=== PATIENT | male | born 2000 | race Caucasian/White ===

== ENCOUNTER 2022-04-12 06:05 | Emergency (ER) | payer BC, SELFPAY ==
[2022-04-12 06:54] LABS: Acetaminophen Less than 10.0 mcg/mL (10.0-30.0); Alcohol 233 mg/dL (Less than 10); CK (CPK) 688 U/L (30-200); Salicylate Less than 8.0 mg/dL (15.0-30.0)
[2022-04-12 06:55] LABS: ALT (SGPT) 58 U/L (8-55); AST (SGOT) 77 U/L (5-34); Albumin 4.7 g/dL (3.5-5.0); Alkaline Phosphatase 72 U/L (40-110); Anion Gap 16 mmol/L (10-20); BUN (Urea Nitrogen) 9 mg/dL (8.9-20.6); Bilirubin, Total 0.7 mg/dL (0.2-1.2); Calc. Creatinine Clearance 0 mL/min (70-130); Calcium 8.9 mg/dL (7.8-10.44); Carbon Dioxide 23 mmol/L (22-29); Chloride 104 mmol/L (98-107); Estimated GFR 77; Globulin 3.1 g/dL (2.4-3.5); Glucose 105 mg/dL (70-105); Potassium 3.9 mmol/L (3.5-5.1); Protein, Total 7.8 g/dL (6.0-8.3); Sodium 139 mmol/L (136-145)
[2022-04-12 07:02] LABS: Band 3 % (5-11); Hemoglobin 17.5 g/dL (14.0-18.0); Lymphocytes 4 % (21-51); MDiff Complete? YES; Mean Corpuscular HGB CONC 34.1 g/dL (32.0-36.0); Mean Corpuscular Hemoglobin 32.8 pg (27.0-31.0); Mean Platelet Volume 8.5 fL (7.4-10.4); Monocytes 4 % (0-10); Myelocyte 1 % (0-0); Neutrophil 88 % (42-75); Platelet Count 253 thou/uL (130-400); Platelet Morphology Comment Appears Adequate; RBC Distribution Width 11.6 % (11.5-14.5); RBC Morphology Normal; Red Blood Cell (RBC) Count 5.34 mill/uL (4.70-6.10); White Blood Cell (WBC) Count 25.6 thou/uL (4.8-10.8)
[2022-04-12] MEDS ORDERED: Acetaminophen 500 MG TAB ONE (09:32)
[2022-04-12] MEDS ORDERED: Ibuprofen 200 MG TAB ONE (09:32)
[2022-04-12] MEDS ORDERED: Iopamidol-370 76% 500 ML 1 ML ONE (14:24)
== END 2022-04-12 09:40 | disposition home or self-care (01) ==
LOC: ERS 06:05
DX: S32.592A Other specified fracture of left pubis, initial encounter for closed fracture (principal); F10.129 Alcohol abuse with intoxication, unspecified; Y90.7 Blood alcohol level of 200-239 mg/100 ml; W19.XXXA Unspecified fall, initial encounter
CPT/HCPCS: 70450; 71045; 71260; 72125; 74177; 80053; 80307; 82550; 85025; 93005; G0390; Q9967